=== PATIENT | male | born 1995 | race Hispanic/Latino ===

== ENCOUNTER 2017-07-25 19:01 | Emergency (ER) | payer OTHER | END 2017-07-25 19:32 | disposition home or self-care (01) | LOC: EDH 19:01 | DX: S70.12XA Contusion of left thigh, initial encounter (principal); W18.39XA Other fall on same level, initial encounter; Y93.89 Activity, other specified; Y92.830 Public park as the place of occurrence of the external cause; Y99.8 Other external cause status | CPT/HCPCS: 99281 ==

== ENCOUNTER 2017-08-09 13:01 | Emergency (ER) | payer SELFPAY | END 2017-08-09 14:43 | disposition home or self-care (01) | LOC: EDH 13:01 | DX: L02.211 Cutaneous abscess of abdominal wall (principal) | CPT/HCPCS: 10061 ==

== ENCOUNTER 2019-02-12 09:06 | Emergency (ER) | payer OTHER | END 2019-02-12 09:59 | disposition home or self-care (01) | LOC: EDH 09:06 | DX: F41.1 Generalized anxiety disorder (principal); F12.10 Cannabis abuse, uncomplicated; Z72.0 Tobacco use ==

== ENCOUNTER 2019-03-28 11:47 | Emergency (ER) | payer OTHER | END 2019-03-28 13:02 | disposition home or self-care (01) | LOC: EDH 11:47 | DX: G44.209 Tension-type headache, unspecified, not intractable (principal); F41.9 Anxiety disorder, unspecified; Z72.0 Tobacco use | CPT/HCPCS: 99281 ==